=== PATIENT | female | born 1970 | race Caucasian/White ===

== ENCOUNTER 2017-07-31 12:55 | Emergency (ER) | payer SELFPAY ==
--- NOTE | 2017-07-31 14:21 | ED ---
HPI Chest Pain - HPI Summary HPI Summary: 46 yr old female with the complaint of pain right posterior chest. Onset of symptoms was last week. She states she was working at work and lifting things. She felt a slight pull in her back on the right posterior rib area medial and inferior to scapula. The patient had onset of pain in this area that is sharp and worse with deep breath last thursday. The patient reports that she has had no fever. Denies coughing. She states lifting things and pulling things makes the pain worse. She denies palpitations, dizziness. She is a smoker, she is on depoprovera. Denies long trips recently. - History of Current Complaint Chief Complaint: UCBackPain Time Seen by Provider: 07/31/17 13:58 Hx Last Menstrual Period: depo - Allergy/Home Medications Allergies/Adverse Reactions: Allergies Allergy/AdvReac Type Severity Reaction Status Date / Time No Known Allergies Allergy Verified 06/22/15 18:10 Home Medications: Home Medications amLODIPine TAB* [Norvasc 5 mg TAB*] 5 mg PO DAILY 07/31/17 [History Confirmed ] PMH/Surg Hx/FS Hx/Imm Hx Cardiovascular History: Reports: Hx Hypertension - Surgical History Surgery Procedure, Year, and Place: ablasion (uterine), teeth pulled Infectious Disease History: No Infectious Disease History: Denies: Traveled Outside the [place] in Last 30 Days - Family History Known Family History: Positive: None - Social History Occupation: Employed Full-time Alcohol Use: None Substance Use Type: Reports: None Smoking Status (MU): Light Every Day Tobacco Smoker Type: Cigarettes Amount Used/How Often: 4-5 cigarettes daily Review of Systems Negative: Fever, Chills Positive: Chest Pain - posterior right with breathing. All Other Systems Reviewed And Are Negative: Yes Physical Exam Triage Information Reviewed: Yes Vital Signs On Initial Exam: Initial Vitals Temp Pulse Resp BP Pulse Ox 98.1 F 113 18 157/89 99 07/31/17 13:35 07/31/17 13:35 07/31/17 13:35 07/31/17 13:35 07/31/17 13:35 Vital Signs Reviewed: Yes Appearance: Positive: Pain Distress Skin: Positive: Skin Color Reflects Adequate Perfusion Head/Face: Positive: Normal Head/Face Inspection Eyes: Positive: EOMI ENT: Positive: Normal ENT inspection Neck: Positive: Supple, Nontender Respiratory/Lung Sounds: Positive: Clear to Auscultation, Breath Sounds Present , Other - some tenderness posterior right chest wall medial and inferior to scapula Cardiovascular: Positive: Tachycardia. Negative: Murmur Abdomen Description: Positive: Nontender Musculoskeletal: Negative: Edema Left, Edema Right Neurological: Positive: Sensory/Motor Intact, Alert, Oriented to Person Place, Time, CN Intact II-III Psychiatric: Positive: Normal - Bradley Coma Scale Best Eye Response: 4 - Spontaneous Best Motor Response: 6 - Obeys Commands Best Verbal Response: 5 - Oriented Diagnostics - Vital Signs Vital Signs Temp Pulse Resp BP Pulse Ox 07/31/17 13:35 98.1 F 113 18 157/89 99 - Laboratory Lab Results: Lab Results 07/31/17 Range/Units 13:40 POC Urine Color Yellow POC Urine Clarity Clear POC Urine pH 6.0 (5-9) POC Ur Specif [place] 1.020 (1.010-1.030) POC Urine Protein Negative (Negative) POC Ur Glucose (UA) Negative (Negative) POC Urine Ketones Trace H (Negative) POC Urine Blood Negative (Negative) POC Urine Nitrite Negative (Negative) POC Urine Bilirubin Negative (Negative) POC Urine Urobilinogen 0.2 (Negative) POC U Leukocyte Esteras Negative (Negative) Lab Statement: Any lab studies that have been ordered have been reviewed, and results considered in the medical decision making process. - EKG 07/31/17 Cardiac Rate: Tachycardia EKG Rhythm: Sinus Rhythm ST Segment: Normal Ectopy: None Chest Pain Course/Dx - Course Course Of Treatment: 46 yr old female with pleuritic pain, back pain. recommend she go to the ER for further work up to exclude a blood clot to lungs. She signed out AMA. - Diagnoses Provider Diagnoses: Pleuritic pain, Back pain, Hypertension Discharge - Discharge Plan Condition: Good Disposition: AGAINST MEDICAL ADVICE Referrals: Kota Hutson MD [Primary Care Provider] -
--- NOTE | 2017-07-31 15:01 | RAD ---
INDICATION: Chest pain RIGHT lower ribs. Increased pain with deep breathing and lifting. COMPARISON: No relevant prior exams available on the [facility] for comparison. TECHNIQUE: Dual energy PA and routine lateral views of the chest were obtained. REPORT: Elevated lung volumes. No focal pulmonary lesion, compelling alveolar consolidation, pleural effusion, pneumothorax. The heart, pulmonary vasculature, and mediastinal contours are unremarkable. No visualized rib fracture evident. IMPRESSION: Stigmata of obstructive lung disease. No acute pulmonary or cardiac process evident.
[2017-07-31 15:19] VITALS: BP 134/87
== END 2017-07-31 15:35 | disposition left against medical advice (07) ==
LOC: UCCORT 12:55
DX: M54.9 Dorsalgia, unspecified (principal); R07.81 Pleurodynia; I10 Essential (primary) hypertension; F17.210 Nicotine dependence, cigarettes, uncomplicated; Z53.21 Procedure and treatment not carried out due to patient leaving prior to being seen by health care provider
CPT/HCPCS: 71020; 81003; 93005; 99212; G0463